=== PATIENT | female | born 1970 | race Caucasian/White ===

== ENCOUNTER 2024-06-04 10:20 | Emergency (ER) | payer OTHER, SELFPAY ==
[2024-06-04 10:33] VITALS: BP 126/86; PULSE 64; RESP 14; TEMP 36.2; O2SAT 99
--- NOTE | 2024-06-04 10:50 | ED.URI ---
HPI - URI/Sore Throat General Chief Complaint: Upper Respiratory Infection Stated Complaint: Fever/Bodyaches Time Seen by Provider: 06/04/24 10:35 Source: patient Mode of arrival: ambulatory Limitations: no limitations History of Present Illness HPI Narrative: Mila is a 54-year-old female patient presenting to the clinic today with complaints of feeling feverish, body aches, chills, back pain, and an abscess to the right cheek. Denies any URI symptoms or UTI symptoms. Denies any nausea, vomiting, or diarrhea. Related Data Home Medications ?Medication ?Instructions ?Recorded ?Confirmed ?Last Taken ?Type albuterol sulfate 90 mcg/actuation inhalation 06/04/24 Unknown History aerosol inhaler atorvastatin 10 mg tablet mg 06/04/24 Unknown History dorzolamide 22.3 mg-timolol 6.8 06/04/24 Unknown History mg/mL eye drops escitalopram oxalate 10 mg tablet mg 06/04/24 Unknown History fluticasone propionate 50 intranasal 06/04/24 Unknown History mcg/actuation nasal spray,suspension hydrochlorothiazide 12.5 mg tablet mg 06/04/24 Unknown History latanoprost 0.005 % eye drops drp 06/04/24 Unknown History meloxicam 15 mg tablet mg 06/04/24 Unknown History metoprolol succinate 25 mg mg PO 06/04/24 Unknown History tablet,extended release 24 hr Allergies Allergy/AdvReac Type Severity Reaction Status Date / Time vancomycin Allergy Mild Hives Verified 06/04/24 10:30 Review of Systems Review of Systems: Pertinent positives per HPI. Patient denies any rash, headache, visual changes, dizziness, cough, shortness of breath, chest pain, palpitations, nausea, vomiting, diarrhea, constipation, abdominal pain, or any urinary issues. PMFSH Comments At the time of my signature, I reviewed and agree with the nursing past medical, surgical, social, and family history. There is no relevant family history pertinent to the patient complaint. Exam Narrative: General: Well-developed, well nourished, in no apparent distress Head: Normocephalic, atraumatic Eyes: Pupils equally round and reactive to light bilaterally, EOM intact, sclera and conjunctive clear, no discharge, lids normal Ears: TMs intact and clear, ear canals clear, no drainage, grossly hearing normal. Nose: Nares patent, no discharge, no inflammation, no sinus tenderness. Mouth: Oropharynx without lesions or masses, good dentition, MMM. Neck: Supple, trachea midline, no enlargement of anterior or posterior cervical nodes, no thyroid masses or goiter palpable. Cardio: Regular rate and rhythm, s1 and s2 normal, no murmur appreciated. Resp: Clear to auscultation bilaterally anteriorly and posteriorly, no rhonchi, rales, wheezing or rubs Integumentary: [place], warm, and dry, open abscess with very minimal fluctuance to the right cheek, induration approximately 1 cm x 1.5 cm, tenderness to palpation over the area, green brown discharge was expressed and wound culture was obtained Course Course Emergency Course: Portions of this record may have been created with voice recognition software. Level of Care: Express Care Visit Vital Signs Vital signs: Vital Signs Temperature 36.2 C L 06/04/24 10:33 Pulse Rate 64 06/04/24 10:33 Respiratory Rate 14 06/04/24 10:33 Blood Pressure 126/86 06/04/24 10:33 Pulse Oximetry 99 06/04/24 10:33 Oxygen Delivery Room Air 06/04/24 10:33 Temperature 36.2 C L 06/04/24 10:33 Pulse Rate 64 06/04/24 10:33 Respiratory Rate 14 06/04/24 10:33 Blood Pressure 126/86 06/04/24 10:33 Pulse Oximetry 99 06/04/24 10:33 Oxygen Delivery Room Air 06/04/24 10:33 Vital signs reviewed MDM - URI/Sore Throat MDM Narrative Medical decision making narrative: At the time of visit patient is resting comfortably on the exam table. Patient appears to be nontoxic. Plan: Patient declining COVID and influenza testing. Patient has a infected abscess to the right cheek. Expressed purulent discharge and abscess culture was obtained and sent to the lab. Will place patient on Bactrim. Supportive measures were discussed with the patient and they voiced understanding discharge instructions and agrees to treatment plan. Return precautions reviewed Differential Diagnosis Differential diagnosis: Likely upper respiratory infection, viral infection and other (Abscess, sepsis, influenza) Discharge Plan Discharge Clinical Impression: Abscess of cheek Patient Disposition: Home, Self-Care Condition: Stable Instructions: Antibiotic Form, Abscess (ED) Additional Instructions: You declined COVID and influenza testing in the clinic today Wound culture was obtained and sent to the lab Take Bactrim as prescribed May take Tylenol/Motrin as needed for pain or fever Apply warm compress to the abscess to help facilitate drainage Follow-up with your primary care doctor in 2-3 days for wound check Go to the emergency room if symptoms worsen-fever not controlled by Tylenol or Motrin, increasing redness, streaking, purulent discharge, or increase in pain Patient Language: Tunisian Prescriptions: New sulfamethoxazole-trimethoprim [Bactrim DS] 800-160 mg tablet 1 tablet PO Q12H 10 Days Qty: 20 0RF No Action latanoprost 0.005 % drops atorvastatin 10 mg tablet meloxicam 15 mg tablet dorzolamide-timolol 22.3-6.8 mg/mL drops metoprolol succinate 25 mg tablet extended release 24 hr PO albuterol sulfate 90 mcg/actuation HFA aerosol inhaler INHALATION fluticasone propionate 50 mcg/actuation spray,suspension INTRANASAL escitalopram oxalate 10 mg tablet hydrochlorothiazide 12.5 mg tablet Follow-up/Referrals: Caro,MD Dagoberto [Primary Care Provider] - Time of Disposition: 10:52 Quality NIHSS Nursing Documentation ED NIHSS nursing documentation: reviewed/agree
== END 2024-06-04 11:02 | disposition home or self-care (01) ==
PROVIDERS: Emergency Provider Nurse Practitioner Family; PCP Internal Medicine
DX: L02.01 Cutaneous abscess of face (principal); Z79.1 Long term (current) use of non-steroidal anti-inflammatories (NSAID); Z79.899 Other long term (current) drug therapy
CPT/HCPCS: 87070; 87075; 87181; 87205; 99203; G0463

== ENCOUNTER 2024-06-11 15:25 | Emergency (ER) | payer OTHER, SELFPAY ==
--- NOTE | ~2024-06-11 | XR_ITS ---
HISTORY: fall COMPARISON: None TECHNIQUE: 3 views of the left ribs were performed along with a PA and lateral view of the chest FINDINGS: The cardiomediastinal silhouette is unremarkable. The lungs are clear. Cardiac stent is visualized. No acute displaced fracture is appreciated. Bone mineralization is age-appropriate. IMPRESSION: No acute left-sided rib fracture, as detailed above. If clinical suspicion persists, cross-sectional imaging (noncontrast enhanced CT examination of the c hest) is suggested for further evaluation. Reviewed, dictated and finalized at location A. IMPRESSION: No acute left-sided rib fracture, as detailed above. If clinical suspicion persists, cross-sectional imaging (noncontrast enhanced C T examination of the chest) is suggested for further evaluation.
[2024-06-11 15:38] VITALS: BP 155/92; PULSE 51; RESP 19; TEMP 36.6; O2SAT 100
--- NOTE | 2024-06-11 15:51 | ED.FALL ---
HPI - Fall General Chief Complaint: Fall Stated Complaint: FALL Time Seen by Provider: 06/11/24 15:51 Source: patient, RN notes reviewed and old records reviewed Mode of arrival: ambulatory Limitations: no limitations History of Present Illness HPI Narrative: Patient presents with complaints of left-sided rib pain after a fall 2 days ago. She reports that she had a same level fall when she tripped over a wire outside 2 days ago. She has been taking Tylenol and ibuprofen, states neither is giving her any relief. She reports pain is worse with inspiration and cough. She is in no obvious distress Related Data Home Medications ?Medication ?Instructions ?Recorded ?Confirmed ?Last Taken ?Type albuterol sulfate 90 mcg/actuation inhalation 06/04/24 Unknown History aerosol inhaler atorvastatin 10 mg tablet mg 06/04/24 Unknown History dorzolamide 22.3 mg-timolol 6.8 06/04/24 Unknown History mg/mL eye drops fluticasone propionate 50 intranasal 06/04/24 Unknown History mcg/actuation nasal spray,suspension hydrochlorothiazide 12.5 mg tablet mg 06/04/24 Unknown History latanoprost 0.005 % eye drops drp 06/04/24 Unknown History meloxicam 15 mg tablet mg 06/04/24 Unknown History metoprolol succinate 25 mg mg PO 06/04/24 Unknown History tablet,extended release 24 hr escitalopram oxalate 20 mg tablet mg 06/11/24 Unknown History levothyroxine 25 mcg tablet mcg 06/11/24 Unknown History Allergies Allergy/AdvReac Type Severity Reaction Status Date / Time vancomycin Allergy Mild Hives Verified 06/11/24 15:36 Review of Systems Review of Systems: All systems reviewed & are unremarkable except as noted in HPI and below Constitutional: Constitutional: Reports no additional constitutional complaints ENT: Reports system reviewed and no additional complaints, except as documented Cardiovascular: Cardiovascular: Reports no additional cardiovascular complaints Respiratory: Respiratory: Reports no additional respiratory complaints and Reports pain with cough Gastrointestinal: Gastrointestinal: Reports no additional gastrointestinal complaints PMFSH Comments At the time of my signature, I reviewed and agree with the nursing past medical, surgical, social, and family history. There is no relevant family history pertinent to the patient complaint. Exam Const: General: cooperative, no acute distress, alert and awake Orientation/consciousness: oriented to person, oriented to place and oriented to time HENMT: Head: normal to inspection Mouth: Yes moist mucous membranes Chest: Chest palpation & inspection: normal inspection of the chest and localized rib tenderness with anteroposterior compression Resp: Effort & Inspection: normal respiratory effort and able to speak in complete sentences Auscultation: clear to auscultation bilaterally, no crackles, no rales, no rhonchi and no wheezes Cardio: Palpation: normal PMI Rate: regular rate Rhythm: regular rhythm Heart sounds: S1 normal heart sound present and S2 normal heart sound present Neuro: General: oriented to person, oriented to place and oriented to time Cranial nerves: Yes CN's II-XII intact bilaterally Psych: Appearance: grossly normal Thought process: Normal thought process present Insight: Good insight present (Psych) Judgement: Good judgement present (Psych) Course Course Level of Care: Express Care Visit Vital Signs Vital signs: Vital Signs Temperature 97.8 F 06/11/24 15:38 Pulse Rate 51 L 06/11/24 15:38 Respiratory Rate 19 06/11/24 15:38 Blood Pressure 155/92 H 06/11/24 15:38 Pulse Oximetry 100 06/11/24 15:38 Oxygen Delivery Room Air 06/11/24 15:38 Temperature 97.8 F 06/11/24 15:38 Pulse Rate 51 L 06/11/24 15:38 Respiratory Rate 19 06/11/24 15:38 Blood Pressure 155/92 H 06/11/24 15:38 Pulse Oximetry 100 06/11/24 15:38 Oxygen Delivery Room Air 06/11/24 15:38 Reviewed MDM - Fall MDM Narrative Medical decision making narrative: X-ray with no acute findings. Supportive care measures discussed. Patient to follow with primary care provider. Emergency department for new or worse symptoms. Discharge instructions reviewed with patient, as well as provided in writing per nursing staff. The instructions also include specific and strict return/GO TO THE ER as well as f/u information. All questions have been answered, and the patient deny any further questions with discharge and discharge plan. Some parts of this dictation were generated by voice recognition software and may contain typographical and/or grammatical inaccuracies. Differential Diagnosis Differential diagnosis: Likely other (rib pain, rib fracture) Medical Records Attestation: I reviewed the patient's medical records. Imaging Data Attestation: I personally reviewed and interpreted this imaging study as follows: My impression: no acute findings Radiologist's impression: [facility] [address] [place] [address] XRay Report Signed Patient: Mila Fernandes : 1970 MR#: [id number] Age: 54 Acct:[id number] Loc: [facility] ADM Date: 06/11/24Attending Dr: Ordering Physician: Peri Sanford FNP Date of Service: 06/11/24 Procedure(s): XR ribs LT w PA/LAT CXR Accession Number(s): [id number] cc: Peri Sanford FNP; Caro, Dagoberto SANCHEZ~ HISTORY: fall COMPARISON: None TECHNIQUE: 3 views of the left ribs were performed along with a PA and lateral view of the chest FINDINGS: The cardiomediastinal silhouette is unremarkable. The lungs are clear. Cardiac stent is visualized. No acute displaced fracture is appreciated. Bone mineralization is age-appropriate. IMPRESSION: No acute left-sided rib fracture, as detailed above. If clinical suspicion persists, cross-sectional imaging (noncontrast enhanced CT examination of the chest) is suggested for further evaluation. Reviewed, dictated and finalized at location A. Please be advised this is a medical document. It is intended for [id number] communication. It is written in medical language and may contain unfamiliar abbreviations or verbiage. Medical documents are intended to carry relevant information, facts as evident, and the clinical opinion of the practitioner at the time of the encounter. This report may have been done utilizing a voice recognition system. Attempts have been made to correct errors. However, there may be uncorrected grammatical, spelling, and recognition errors present. The file time of this note does not necessarily represent the time of service. Dictated By: Dania Chandra MD 06/11/24 1614 Signed By: <Electronically signed by Dania Chandra MD in OV> Discharge Plan Discharge Clinical Impression: Musculoskeletal pain Patient Disposition: Home, Self-Care Condition: Stable Instructions: Antibiotic Form, Musculoskeletal Pain (ED) Additional Instructions: Take medication as prescribed. Follow with primary care provider. Emergency department for new or worse symptoms Patient Language: Georgian Prescriptions: New prednisone 50 mg tablet 50 mg PO DAILY Qty: 5 0RF No Action levothyroxine 25 mcg tablet escitalopram oxalate 20 mg tablet latanoprost 0.005 % drops atorvastatin 10 mg tablet meloxicam 15 mg tablet dorzolamide-timolol 22.3-6.8 mg/mL drops metoprolol succinate 25 mg tablet extended release 24 hr PO albuterol sulfate 90 mcg/actuation HFA aerosol inhaler INHALATION fluticasone propionate 50 mcg/actuation spray,suspension INTRANASAL hydrochlorothiazide 12.5 mg tablet sulfamethoxazole-trimethoprim [Bactrim DS] 800-160 mg tablet 1 tablet PO Q12H 10 Days Qty: 20 0RF Follow-up/Referrals: Caro,MD Dagoberto [Primary Care Provider] - 1 Week Stand Alone Forms: Work/School Release IP Time of Disposition: 16:35
== END 2024-06-11 16:47 | disposition home or self-care (01) ==
PROVIDERS: Emergency Provider Nurse Practitioner Family; PCP Internal Medicine
DX: R07.81 Pleurodynia (principal); Z79.899 Other long term (current) drug therapy; W01.0XXA Fall on same level from slipping, tripping and stumbling without subsequent striking against object, initial encounter
CPT/HCPCS: 71046; 71100; 99213; G0463

== ENCOUNTER 2024-10-21 15:39 | Emergency (ER) | payer OTHER, SELFPAY ==
[2024-10-21 15:49] VITALS: BP 156/76; PULSE 56; RESP 16; TEMP 36.7; O2SAT 99
--- NOTE | 2024-10-21 16:06 | ED.GENADULT ---
HPI - General Adult General Chief complaint: Eye Problems Stated complaint: R Eye Pain Source: patient Mode of arrival: ambulatory Limitations: no limitations History of Present Illness HPI narrative: patient is a 54-year-old female presenting with complaint of right eye pain. Pt states she was working in the yard and suspects dirt got in her right eye. Patient states the rubbed her right eye, which made things worse. Patient states she was wearing contact lenses when suspected dirt got in her right eye. Patient states she removed the right contact lens however, later put a contact lens in her right eye she states the pain was lesser with the contact lens in place. No tx initiated [employer]. No additional complaints. Related Data Home Medications ?Medication ?Instructions ?Recorded ?Confirmed ?Last Taken ?Type albuterol sulfate 90 mcg/actuation 1 inh inhalation 06/04/24 Unknown History aerosol inhaler atorvastatin 10 mg tablet mg 06/04/24 Unknown History dorzolamide 22.3 mg-timolol 6.8 06/04/24 Unknown History mg/mL eye drops fluticasone propionate 50 intranasal 06/04/24 Unknown History mcg/actuation nasal spray,suspension hydrochlorothiazide 12.5 mg tablet mg 06/04/24 Unknown History latanoprost 0.005 % eye drops 1 drp 06/04/24 Unknown History metoprolol succinate 25 mg mg PO 06/04/24 Unknown History tablet,extended release 24 hr escitalopram oxalate 20 mg tablet mg 06/11/24 Unknown History levothyroxine 25 mcg tablet mcg 06/11/24 Unknown History aripiprazole 5 mg tablet mg 10/21/24 Unknown History aspirin 81 mg tablet,delayed 81 mg PO DAILY 10/21/24 10/21/24 Unknown History release (Adult Aspirin Regimen) divalproex 250 mg tablet,delayed mg PO 10/21/24 Unknown History release lumateperone 42 mg capsule mg PO 10/21/24 Unknown History (Caplyta) Allergies Allergy/AdvReac Type Severity Reaction Status Date / Time vancomycin Allergy Mild Hives Verified 10/21/24 16:11 Review of Systems Review of Systems: CONSTITUTIONAL: Denies body aches, fever, chills, or sweats. EYES: Reports R eye pain, redness, epiphora. Denies visual changes ENT: Denies rhinorrhea, congestion, sore throat, or otalgia. CARDIOVASCULAR: Denies chest pain, palpitations, or edema. RESPIRATORY: Denies cough or dyspnea. GASTROINTESTINAL: Denies abdominal pain, nausea, vomiting, or diarrhea. GENITOURINARY: Denies dysuria or hematuria. SKIN: Denies rash, itching, or wounds. MUSCULOSKELETAL: Denies back pain, joint pain, or myalgia. NEUROLOGIC: Denies headache, numbness, tingling, or weakness. PSYCH: Denies depression or anxiety. All systems reviewed & are unremarkable except as noted in HPI and below Exam Narrative: GENERAL: Well-appearing, well-nourished, and in no acute distress. HEAD: Normocephalic, atraumatic. EYES: EOMI. ENT: Mucous membranes pink and moist. NECK: Normal AROM. Supple. CHEST: No respiratory distress. HEART: Regular rate SKIN: Warm, dry, no rash. Capillary refill normal. Normal skin turgor. NEURO: No focal deficits. Alert and oriented x3. Gait steady. PSYCH: Normal affect. No signs of depression or anxiety. Eyes: Periorbital: periorbital findings normal Eyelids: eyelids normal Conjunctivae: conjunctival abnormality right conjunctival injection and discharge (watery) Cornea: corneas abnormal on the right fluorescein used, abrasion punctate, at the following clock position (6) and other (several punctate and linear lesions--abrasions vs ulcerations) and contact lens present (2 contact lens); with no foreign body noted Pupils: Equal, round and reactive pupils present and Pupils normal by confrontation EOM: EOMs intact bilaterally Direct Ophthalmoscopy: normal light reflex Course Course Emergency Course: I asked patient to remove contact lenses prior to Fluorescein exam -pt unable to do so-I removed using a cotton tipped applicator. I then proceeded with fluorescein staining--I found another contact lens to be in place. Pt stated I thought I took it out last night but I couldn't find it so I put another one in. Eye irrigated extensively after fluorescein exam. Pt tolerated procedure well. Level of Care: Express Care Visit Vital Signs Vital signs: Vital Signs Temperature 98.1 F 10/21/24 15:49 Pulse Rate 56 L 10/21/24 15:49 Respiratory Rate 16 10/21/24 15:49 Blood Pressure 156/76 H 10/21/24 15:49 Pulse Oximetry 99 10/21/24 15:49 Oxygen Delivery Room Air 10/21/24 15:49 Temperature 98.1 F 10/21/24 15:49 Pulse Rate 56 L 10/21/24 15:49 Respiratory Rate 16 10/21/24 15:49 Blood Pressure 156/76 H 10/21/24 15:49 Pulse Oximetry 99 10/21/24 15:49 Oxygen Delivery Room Air 10/21/24 15:49 Medical Decision Making Vital Signs Vital Signs: Vital Signs Temperature 98.1 F 10/21/24 15:49 Pulse Rate 56 L 10/21/24 15:49 Respiratory Rate 16 10/21/24 15:49 Blood Pressure 156/76 H 10/21/24 15:49 Pulse Oximetry 99 10/21/24 15:49 Oxygen Delivery Room Air 10/21/24 15:49 Temperature 98.1 F 10/21/24 15:49 Pulse Rate 56 L 10/21/24 15:49 Respiratory Rate 16 10/21/24 15:49 Blood Pressure 156/76 H 10/21/24 15:49 Pulse Oximetry 99 10/21/24 15:49 Oxygen Delivery Room Air 10/21/24 15:49 Discharge Plan Discharge Clinical Impression: HTN (hypertension) Qualifiers: Hypertension type: unspecified Qualified Code(s): I10 - Essential (primary) hypertension Corneal abrasion Qualifiers: Encounter type: initial encounter Laterality: right Qualified Code(s): S05.01XA - Injury of conjunctiva and corneal abrasion without foreign body, right eye, initial encounter Patient Disposition: Home Condition: Stable Instructions: Antibiotic Form Additional Instructions: DO not wear contact lenses until instructed otherwise by your eye doctor. Call your eye doctor first thing in the morning. You can take Tylenol/motrin per the package instructions for pain. Go straight to ER should your symptoms become worse or should any new symptoms develop Patient Language: Urdu Prescriptions: New levofloxacin 0.5 % drops See Rx Instructions .ROUTE .COMPLEX Qty: 5 5RF Rx Instructions: put 1-2 drps in affected eye(s) every 2hr up to 8 times/day x2days; then 4 times/day x5days No Action levothyroxine 25 mcg tablet escitalopram oxalate 20 mg tablet divalproex 250 mg tablet,delayed release (DR/EC) PO aripiprazole 5 mg tablet Caplyta 42 mg capsule PO aspirin [Adult Aspirin Regimen] 81 mg tablet,delayed release (DR/EC) 81 mg PO DAILY latanoprost 0.005 % drops 1 drp atorvastatin 10 mg tablet dorzolamide-timolol 22.3-6.8 mg/mL drops metoprolol succinate 25 mg tablet extended release 24 hr PO albuterol sulfate 90 mcg/actuation HFA aerosol inhaler 1 inh INHALATION fluticasone propionate 50 mcg/actuation spray,suspension INTRANASAL hydrochlorothiazide 12.5 mg tablet Follow-up/Referrals: Caro,MD Dagoberto [Primary Care Provider] - 10/21/24 Time of Disposition: 16:26
[2024-10-21] MEDS: TETRACAINE HCL 0.5% OPHTH SOLN 4 ML BTL RIGHT EYE (16:18)
[2024-10-21] MEDS: FLUORESCEIN SOD 1 MG/STRIP RIGHT EYE (16:19)
== END 2024-10-21 16:40 | disposition home or self-care (01) ==
PROVIDERS: Emergency Provider Registered Nurse; PCP Internal Medicine
DX: I10 Essential (primary) hypertension (principal); S05.01XA Injury of conjunctiva and corneal abrasion without foreign body, right eye, initial encounter; X58.XXXA Exposure to other specified factors, initial encounter
CPT/HCPCS: 99213; G0463